=== PATIENT | female | born 1990 | race Caucasian/White ===

== ENCOUNTER 2024-05-04 21:19 | Inpatient (IN) | payer OTHER ==
[~2024-05-04] VITALS: Ht 144.8 cm; Wt 64.4 kg
[2024-05-04] MEDS ORDERED: CARBOPROST 250 MCG/ML AMP IM PRN (22:00)
[2024-05-04] MEDS ORDERED: CITRIC ACID/SODIUM CITRATE 30 ML UDC PO ONE (22:00)
[2024-05-04] MEDS ORDERED: LACTATED RINGERS 500 ML IV ONE (22:00)
[2024-05-04 22:35] LABS: BASOPHILS % (AUTO) 0.3 % (0.0-2.0); EOSINOPHILS % (AUTO) 0.2 % (0.0-4.0); HEMATOCRIT 26.1 % (36-48); HEMOGLOBIN 9.1 g/dL (12.0-16.0); LYMPHOCYTES # (AUTO) 1.6 K/uL (2.5-16.5); LYMPHOCYTES % (AUTO) 27.6 % (20.5-51.1); MEAN CORPUSCULAR HEMOGLOBIN 30 pg (27-31); MEAN CORPUSCULAR HGB CONC 35 g/dL (33-37); MEAN CORPUSCULAR VOLUME 86.8 fL (80-94); MONOCYTES # (AUTO) 0.5 K/uL (0.8-1.0); MONOCYTES % (AUTO) 8.2 % (1.7-9.3); NEUTROPHILS # (AUTO) 3.7 K/uL (1.8-7.7); NEUTROPHILS % (AUTO) 63.7 % (42.2-75.2); PLATELET COUNT (AUTO) 259 K/uL (140-450); RED CELL DISTRIBUTION WIDTH 14.4 % (11.6-13.7); WHITE BLOOD COUNT (AUTO) 5.9 K/uL (4.8-10.8)
[2024-05-04] MEDS ORDERED: MORPHINE SULFATE 4 MG/ML SYR IVP PRN (22:35)
[2024-05-04] MEDS ORDERED: ONDANSETRON 4 MG/2 ML VIAL IVP PRN (22:35)
[2024-05-04 22:50] LABS: INR 0.82 (0.8-1.2); PARTIAL THROMBOPLASTIN TIME 21.4 secs (22-35.6); PROTHROMBIN TIME 8.7 secs (10.8-13.4)
[2024-05-04 22:51] LABS: ALBUMIN 2.1 g/dL (3.4-5.0); ANION GAP 13.8 (8-16); CALCIUM 8.9 mg/dL (8.5-10.1); CARBON DIOXIDE 24.7 mmol/L (21-32); CREATININE 0.8 mg/dL (0.6-1.3); POTASSIUM 3.5 mmol/L (3.5-5.1); TOTAL BILIRUBIN 0.3 mg/dL (0.0-1.0); TOTAL PROTEIN, SERUM 6.8 g/dL (6.4-8.2)
[2024-05-04 23:09] LABS: APPEARANCE,URINE CLEAR (CLEAR); BILIRUBIN,URINE NEGATIVE (NEGATIVE); BLOOD, URINE NEGATIVE (NEGATIVE); COLOR,URINE YELLOW (YELLOW); LEUKOCYTE ESTERASE ,URINE TRACE (NEGATIVE); NITRITE, URINE NEGATIVE (NEGATIVE); PH,URINE 6.5 (5.0-9.0); PROTEIN,URINE 1+ (NEGATIVE); UGLUCOSE NEGATIVE (NEGATIVE); UROBILINOGEN,URINE 0.2 EU/dL (0.2 - 1)
[2024-05-04] MEDS: LACTATED RINGERS 1,000 ML IV SCH (23:16)
[2024-05-04 23:19] LABS: RBC,URINE 0-5 /HPF (0-5)
[2024-05-04 23:20] LABS: BACTERIA,URINE >30 (MANY) /HPF (None Seen); MUCUS,URINE 1+ /LPF (None Seen); SQUAMOUS EPITHELIAL CELL,UR 4-10 (MOD) /LPF (0-3 (FEW))
[2024-05-04] MEDS: TERBUTALINE 1 MG/ML VIAL SUBQ SCH (23:41)
[2024-05-05 08:59] VITALS: BP 96/56; PULSE 86; RESP 18; TEMP 98.2; O2SAT 98
[2024-05-05] MEDS ORDERED: MEDS-TO-BEDS MC SCH (09:00)
[2024-05-05] MEDS: [UNRECOGNIZED DRUG - OTHER] IV SCH (16:26)
[2024-05-05] MEDS ORDERED: ceFAZolin 2,000 MG VIAL ONE (16:48)
[2024-05-05] MEDS: [UNRECOGNIZED DRUG - MIXTURE] IV SCH (17:39)
[2024-05-05] MEDS ORDERED: fentaNYL citrate 0.05 MG/ML VIAL ONE (19:16)
[2024-05-05] MEDS ORDERED: MORPHINE PRES FREE 5 MG/10 ML AMP IV ONE (19:16)
[2024-05-05] MEDS ORDERED: diphenhydrAMINE 50 MG/ML VIAL IVP PRN (19:55)
[2024-05-05] MEDS ORDERED: ONDANSETRON 4 MG/2 ML VIAL IVP PRN (19:55)
[2024-05-05] MEDS ORDERED: NALOXONE 0.4 MG/ML VIAL IVP PRN ×3 (19:55)
[2024-05-05] MEDS: OXYTOCIN/0.9 % SODIUM CHLORIDE 500 ML IV ONE (21:17)
[2024-05-05] MEDS: METHYLERGONOVINE 0.2 MG/ML AMP IM PRN (22:34)
[2024-05-05] MEDS ORDERED: LACTATED RINGERS 1,000 ML IV SCH (22:50)
[2024-05-06] MEDS: KETOROLAC 30 MG/ML VIAL IM/IVP SCH
[2024-05-06] MEDS: ACETAMINOPHEN 100 ML IV PRN (04:01)
[2024-05-06] MEDS: OXYTOCIN/0.9 % SODIUM CHLORIDE 500 ML IV SCH (04:22)
[2024-05-06] MEDS: MAGNESIUM OXIDE 400 MG TAB PO SCH (08:38)
[2024-05-06] MEDS: SIMETHICONE 80 MG TAB.CHEW PO PRN (08:38)
[2024-05-06] MEDS ORDERED: COMMUNICATION ORDER MC SCH (09:00)
[2024-05-06 09:26] LABS: BASOPHILS % (AUTO) 0.2 % (0.0-2.0); EOSINOPHILS % (AUTO) 0.1 % (0.0-4.0); HEMATOCRIT 20.1 % (36-48); LYMPHOCYTES # (AUTO) 1.1 K/uL (2.5-16.5); LYMPHOCYTES % (AUTO) 14.4 % (20.5-51.1); MEAN CORPUSCULAR HEMOGLOBIN 29 pg (27-31); MEAN CORPUSCULAR HGB CONC 33 g/dL (33-37); MONOCYTES # (AUTO) 0.5 K/uL (0.8-1.0); MONOCYTES % (AUTO) 6.1 % (1.7-9.3); NEUTROPHILS # (AUTO) 6.3 K/uL (1.8-7.7); NEUTROPHILS % (AUTO) 79.2 % (42.2-75.2); PLATELET COUNT (AUTO) 214 K/uL (140-450); RED BLOOD CELL COUNT(AUTO) 2.25 MIL/uL (4.20-5.40); RED CELL DISTRIBUTION WIDTH 14.1 % (11.6-13.7); WHITE BLOOD COUNT (AUTO) 7.9 K/uL (4.8-10.8)
[2024-05-06 09:43] LABS: HEMOGLOBIN 6.6 g/dL (12.0-16.0)
[2024-05-06] MEDS: oxyCODONE/APAP 5/325 MG 1 TAB TAB PO PRN (16:02)
[2024-05-06] MEDS: FERROUS SULFATE 325 MG TABEC PO SCH (17:49)
[2024-05-06] MEDS: DOCUSATE SOD/SENNA 50/8.6 MG 1 TAB PO SCH (22:29)
[2024-05-07] MEDS: oxyCODONE/APAP 5/325 MG 1 TAB TAB PO PRN (00:14)
[2024-05-08] MEDS ORDERED: bisacodyL 10 MG SUPP RC SCH (13:11)
[2024-05-08] MEDS ORDERED: SIME80TA34 PO (13:38)
[2024-05-08] MEDS ORDERED: IBUP-2213 PO (13:38)
[2024-05-08] MEDS ORDERED: BISA5TAB79 PO (13:41)
== END 2024-05-08 16:00 | disposition home or self-care (01) | DRG 540 ==
LOC: MFCC 21:19 → OBSVTOIN 22:15 → MFCC 05-05 21:30
PROVIDERS: ADMIT Obstetrics & Gynecology; ATTEND Obstetrics & Gynecology
PROC: 10D00Z1 Extraction of Products of Conception, Low, Open Approach (ICD-10-PCS; principal; 2024-05-05 19:00)
DX: O34.211 Maternal care for low transverse scar from previous cesarean delivery (principal); D62 Acute posthemorrhagic anemia; O98.713 Human immunodeficiency virus [HIV] disease complicating pregnancy, third trimester; O90.81 Anemia of the puerperium; Z37.0 Single live birth; Z3A.39 39 weeks gestation of pregnancy
CPT/HCPCS: 36415; 80053; 81001; 85025; 85610; 85730; 86592; 86886; 86900; 86901; 87086; J2210; J2590; J3010; J3105; J7120